=== PATIENT | female | born 1955 | race Caucasian/White ===

== ENCOUNTER 2017-12-14 06:59 | Emergency (ER) | payer MEDICARE, OTHER ==
[2017-12-14] MEDS ORDERED: 0.9 % SODIUM CHLORIDE 1,000 ML IV ONE (07:19)
[2017-12-14 08:08] LABS: BASOPHILS % 0.1 (0.0-1.5); MEAN CORPUSCULAR HEMOGLOBIN 28.4 pg (28.0-34.0); MEAN CORPUSCULAR VOLUME 87.5 fl (80.0-100.0)
[2017-12-14 08:36] LABS: EOSINOPHILS % 0.4 % (0.0-6.8); MONOCYTES % 3.4 % (0.0-11.0); NEUTROPHILS # 6.8 # k/uL (1.4-7.7)
--- NOTE | 2017-12-14 08:48 | ED Physician Documentation ---
General Adult - HISTORIAN Historian: patient - HPI Chief Complaint: General Adult Further Comments: yes (62 year old female patient presents with complaint of diarrhea since Monday. Reports 6-7 episodes of diarrhea today. Took dose Immodium at 0530; did not repeat doses. Denies nausea, vomiting or abdominal pain. Diarrhea started after eating a frozen [employer] burrito on Monday. Able to eat and drinking with out N/V) - ROS CONST: no problems EYES/ENT: none CVS/RESP: none GI/: none MS/SKIN/LYMPH: none NEURO/PSYCH: denies: headache, fainting, dizziness, tingling, numbness, difficulty walking, difficulty with speech, anxiety, depression, other - PAST HX Past History: hypertension Other History: diabetes Type 2, other (GERD, HLD, Astrocytoma brain tumor, Chronic hyponatremia, Polydipsia, Seizures) Surgeries/Procedures: (x2), other (Crani) Allergies/Adverse Reactions: Allergies Allergy/AdvReac Type Severity Reaction Status Date / Time haloperidol [From Haldol] Allergy Verified 12/14/17 07:17 haloperidol lactate Allergy Verified 12/14/17 07:17 [From Haldol] Penicillins Allergy Verified 12/14/17 07:17 Home Medications: Ambulatory Orders Medication Instructions Recorded NK [NK] 05/21/14 Benazepril HCl [Lotensin] 30 Days #15 03/30/17 Fluoxetine HCl 30 Days #30 03/30/17 Lorazepam 4 Days #10 03/30/17 Omeprazole 30 Days #30 03/30/17 Oxybutynin Chloride [Oxybutynin 30 Days #30 03/30/17 Chloride Er] Paliperidone Palmitate [Invega 30 Days #1 03/30/17 Sustenna] Pravastatin Sodium 30 Days #30 03/30/17 Ventolin 30 Days #18 03/30/17 gliPIZIDE ER [Glucotrol Xl] 30 Days #30 03/30/17 - SOCIAL HX Smoking History: non-smoker - FAMILY HX Family History: No - VITAL SIGNS Vital Signs: Vital Signs Temp Pulse Resp BP Pulse Ox 140/84 05/21/14 22:19 - REVIEWED ASSESSMENTS Nursing Assessment Reviewed: Yes Vitals Reviewed: Yes Progress - Progress Progress: Reviewed lab results with patient. Reports she feels better. Reviewed discharge instructions. Verbalized understanding. ED Results Lab/Radiology - Lab Results Lab Results: Lab Results 12/14/17 08:25 WBC 8.00 K/ul K/ul (4.00-12.00) RBC 4.26 M/ul M/ul (3.90-5.20) Hgb 12.1 g/dL g/dL (12.0-16.0) Hct 37.3 % % (34.5-46.5) MCV 87.5 fl fl (80.0-100.0) MCH 28.4 pg pg (28.0-34.0) MCHC 32.4 g/dL g/dL (30.0-36.0) RDW 13.2 % % (11.3-14.3) Plt Count 196 K/mm3 K/mm3 (130-400) Neut % (Auto) 84.8 % H % (39.0-79.0) Lymph % (Auto) 10.1 % L % (16.0-50.0) Kane % (Auto) 3.4 % % (0.0-11.0) Eos % (Auto) 0.4 % % (0.0-6.8) Baso % (Auto) 0.1 (0.0-1.5) Neut # (Auto) 6.8 # k/uL # k/uL (1.4-7.7) Lymph # (Auto) 0.8 # k/uL # k/uL (0.6-4.0) Kane # (Auto) 0.3 # k/uL # k/uL (0.0-0.9) Eos # (Auto) 0.0 # k/uL # k/uL (0.0-0.6) Baso # (Auto) 0.0 # k/uL # k/uL (0.0-0.5) Reactive Lymphs % 1.2 % % (0.0-5.0) Reactive Lymphs # 0.1 # k/uL # k/uL (0.0-0.8) - Orders Orders: ED Orders Category Date Time Status Place IV Lock 1T Care 12/14/17 07:19 Active CBC/PLATELET/DIFF Stat Lab 12/14/17 08:25 Completed CMP Stat Lab 12/14/17 08:25 Received 0.9 % Sodium Chloride [Normal Saline] 1,000 ml Med 12/14/17 07:19 Discontinued IV NOW General Adult Physical Exam - PHYSICAL EXAM GENERAL APPEARANCE: [id number] N EENT: eye inspection normal, ENT inspection normal, pharynx normal, no signs of dehydration, ION, no nystagmus, TM's nml CVS: reg rate & rhythm, heart sounds normal, equal pulses, no murmur, no gallop , PMI nml, no JVD, no friction rub, 24 ABDOMEN: soft, no organomegaly, no abdominal bruit, no distension, decreased BS BACK: normal inspection, no CVA tenderness SKIN: normal color, warm/dry, NR, INT, PAL, DR EXTREMITIES: non-tender, normal range of motion, no evidence of injury, no edema , J, [employer] NEURO: oriented X3, CN's nml as tested, motor nml, sensation nml, mood/affect nml Discharge Clincal Impression: Acute diarrhea Referrals: Chris Maki MD [Primary Care Provider] - 2 Days Additional Instructions: Diet: Clear liquids Sprite/7-up Juices apple, white grape Gatorade/Powerade Jello Popsicles When tolerating clear liquids, advance to bland/brat diet - such as crackers, rice, Bananas, apples/applesauce or toast Use over the counter immodium per package directions. Repeat doses per package direction with each episode of diarrhea. Return to the emergency department or call your doctor, if you are having severe abdominal pain, fever >101.0, or if there is blood in the vomit or diarrhea, or you cannot keep down liquids or solid food. Condition: Stable Disposition: 01 HOME, SELF-CARE Decision to Admit: NO Decision Time: 09:19
[2017-12-14 08:52] VITALS: BP 136/86
[2017-12-14 09:15] LABS: eGFR (African) > 60; eGFR (Non-African) > 60
== END 2017-12-14 09:50 | disposition home or self-care (01) ==
LOC: ED 06:59
DX: R19.7 Diarrhea, unspecified (principal)
CPT/HCPCS: 80053; 85025; J7030; 96360; 99284; S1016